=== PATIENT | male | born 1935 | race Caucasian/White ===

== ENCOUNTER → 2016-06-08 | Outpatient (CLI) | payer MEDICARE ==
[2016-06-08 18:45] LABS: Blood Urea Nitrogen 25 mg/dL (9-20); Non-African American GFR(MDRD) >60 (>60 ml/min/1.73 sqM)
--- NOTE | 2016-06-09 07:49 | CT ---
EXAMINATION TYPE: CT abdomen pelvis w con DATE OF EXAM: 06/08/2016 8:08 PM COMPARISON: 10/01/2015 HISTORY: Polyps found on colonoscopy per patient. Per order evaluate cecum mass and kidney mass. CT DLP: 1412.90 mGycm CONTRAST: CT scan of the abdomen and pelvis is performed with Oral Contrast and with IV Contrast, patient injec tatiana with 100 mL of Omnipaque 300. FINDINGS: LUNG BASES-: No visible nodule. No infiltrate. Basilar calcified granulomas noted. LIVER/GB: No calcified gallstones. No space occupying hepatic lesion. Biliary tree is of normal ca liber. PANCREAS: No inflammation. No distinct mass. SPLEEN: No splenic enlargement. No lesion seen. ADRENALS: No nodule. No thickening. KIDNEYS/BLADDER: No hydronephrosis. No nephrolithiasis. Solid renal lesion lower pole left kidney measures approximately 4.8 x 2.9 cm. No additional solid lesions evident. Large cyst left kidney midp ole region measures 5.6 cm in greatest dimension. Urinary bladder grossly unremarkable. BOWEL: Normal appendix. Normal bowel caliber. No inflammation. Large amount of intracolonic debris within the cecal region limits evaluation. Underlying mass is difficult to exclude. Correlate with co lonoscopy. GENITAL ORGANS: No gross abnormality. LYMPH NODES: No greater than 1cm abdominal or pelvic lymph nodes are appreciated. AORTA: No significant abnormality. OSSEOUS STRUCTURES: Severe degenerative change lumbar spine. OTHER: No significant additional abnormality is seen. IMPRESSION: 1. Large amount of intracolonic debris within the cecal region limits evaluation. Underlying mass is difficult to exclude. Correlate with colonoscopy. 2. Solid mass lower pole left kidney. Renal cell carcinoma is not excluded. consult advised.
== END | disposition home or self-care (01) ==
LOC: RADCTMAIN 18:03
PROVIDERS: ATTEND Internal Medicine Pulmonary Disease
DX: N28.89 Other specified disorders of kidney and ureter (principal); I10 Essential (primary) hypertension
CPT/HCPCS: 82565; 84520; 74177; 36415; Q9967

== ENCOUNTER → 2016-07-26 | Outpatient (CLI) | payer MEDICARE ==
--- NOTE | 2016-07-26 13:03 | FL ---
EXAMINATION TYPE: FL barium enema w air contrast DATE OF EXAM: 07/26/2016 12:19 PM COMPARISON: Abnormal CT with inconclusive colonoscopy. HISTORY: CT abdomen and pelvis June 08, 2016. TECHNIQUE: A double contrast barium enema study is performed. A total of 4 minutes 36 seconds of flu oroscopic time was utilized during procedure. FINDINGS: Studio Grip view of the abdomen shows overall non-obstructive bowel gas pattern. There is successful filling to the cecum. Patient has redundant colon making evaluation suboptimal as contrast bag is filled 3 times for procedure. The redundant colon makes double contrast evaluation o f the right colon Essentially impossible making evaluation at the area of CT concern suboptimal. In a ddition reflux of contrast into terminal ileum makes evaluation at this level suboptimal. No evidence of any intraluminal mass, obstructing or constricting lesion throughout the colon. Just a few scattered diverticula are present. Appendix was filled and appeared normal. The terminal ileum was refluxed and appears within normal limits. There is no obvious lesion identified at area of concern the cecum at level of terminal ileum . Double contrast evaluation cannot be performed. No suspicious narrowing is present. IMPRESSION: Corresponding to area of CT concern, no obvious lesion is present but nonobstructing muc osal lesion cannot be excluded due to above limitations. Options include repeat colonoscopy or CT col onography in these difficult cases. Remainder of study unremarkable for neoplasm.
== END | disposition home or self-care (01) ==
LOC: RADFLMAIN 10:15
PROVIDERS: ATTEND Internal Medicine Pulmonary Disease
DX: C18.9 Malignant neoplasm of colon, unspecified (principal)
CPT/HCPCS: 74280

== ENCOUNTER 2016-08-02 08:42 | Day surgery (SDC) | payer MEDICARE ==
[2016-08-02] MEDS ORDERED: HYDROmorphone 1 MG/ML 1 ML SYRINGE IVP PRN (09:01)
[2016-08-02 09:08] VITALS: TEMP 98.2
[2016-08-02 09:18] LABS: INR 1.1 (<1.1); Prothrombin Time 11.4 sec (9.0-12.0)
[2016-08-02 09:20] LABS: Non-African American GFR(MDRD) >60 (>60 ml/min/1.73 sqM)
--- NOTE | 2016-08-02 14:00 | CT ---
EXAMINATION TYPE: CT guided FNA DATE OF EXAM: 08/02/2016 10:59 AM COMPARISON: NONE HISTORY: left renal mass CT DLP: 1864mGycm PROCEDURE: The risks, applications, benefits and alternatives, were discussed with the patient and questions wer e answered. Informed consent was obtained. The patient was placed prone on the fluoroscopic table, p repped and draped in the usual sterile fashion. A 22-gauge system was utilized with direct passage of the needle into the left renal lesion under CT guidance. Samples were obtained with fine needle aspiration. Pathology confirmed adequate sample. The patient was stable throughout procedure and remained stable upon discharge from radiology. All e lements of maximal barrier and sterile technique were utilized. IMPRESSION: 1. Successful left renal mass fine needle aspiration under CT guidance.
[2016-08-02 14:27] VITALS: BP 115/73; PULSE 57; RESP 16
== END 2016-08-02 14:28 | disposition home or self-care (01) ==
LOC: RADPROMAIN 08:42
PROVIDERS: ATTEND Urology
DX: C64.2 Malignant neoplasm of left kidney, except renal pelvis (principal); I10 Essential (primary) hypertension; E66.9 Obesity, unspecified; Z68.30 Body mass index [BMI] 30.0-30.9, adult; Z79.82 Long term (current) use of aspirin; Z79.899 Other long term (current) drug therapy; Z88.0 Allergy status to penicillin; Z88.8 Allergy status to other drugs, medicaments and biological substances
CPT/HCPCS: 10022; 36415; 77012; 82565; 85049; 85610; 88173; 88305; 88341; 88342

== ENCOUNTER → 2017-02-05 | Outpatient (CLI) | payer MEDICARE ==
[2017-02-05 19:10] LABS: Blood Urea Nitrogen 20 mg/dL (9-20); Non-African American GFR(MDRD) >60 (>60 ml/min/1.73 sqM)
--- NOTE | 2017-02-05 21:02 | CT ---
EXAMINATION TYPE: CT abdomen w con DATE OF EXAM: 02/05/2017 COMPARISON: CT abdomen and pelvis June 08, 2016 HISTORY: Follow-up staging for renal cancer. CT DLP: 1432.10 mGycm, Automated Exposure Control for Dose Reduction was Utilized. CONTRAST: CT scan of the abdomen is performed with oral and with IV Contrast, patient injected with 100 mL of O mnipaque 300. FINDINGS: LUNG BASES: Cardiomegaly is redemonstrated. Calcified pleural plaques in bilateral lung bases are red emonstrated suggesting prior asbestosis exposure. LIVER/GB: No significant abnormality is appreciated. PANCREAS: No significant abnormality is seen. SPLEEN: No significant abnormality is seen. ADRENALS: Slight thickening to both adrenal glands is redemonstrated, suspected benign hyperplasia KIDNEYS: There is symmetric cortical medullary uptake and excretion of both from both kidneys without evidence of hydronephrosis bilaterally. There is interval partial nephrectomy posterior portion lowe r pole left kidney with some curvilinear fluid at surgical site seen on image 40 series 3. There are subcentimeter low dense lesion anteriorly mid to lower pole level on image 36 series 5 to small to fu rther characterize per presumed benign not as well seen on prior exam. There has likely been fenestra tion of large simple appearing cyst superior to the renal lesion. No suspicious solid or cystic mass is evident currently in either kidney on current study after treatment. BOWEL: Persistent slightly suspicious thickening in the right colon just above the terminal ileum, ca nnot exclude nonobstructing mucosal lesion. Correlate with repeat colonoscopy or CT colonography if t his has not been performed as suggested on BE study in July. LYMPH NODES: No greater than 1cm abdominal abdominal lymph nodes are appreciated. OSSEOUS STRUCTURES: There is prominent multilevel spurring and disc space narrowing in the thoracolum bar spine with multilevel vacuum disc phenomenon present. OTHER: Persistent large inguinal hernia containing fat and small mesenteric vessels is noted. IMPRESSION: Successful surgical treatment of lower pole left renal lesion or neoplasm. No suspicious persistent mass or adenopathy is identified currently. Attention to right colon just above cecum.
== END | disposition home or self-care (01) ==
LOC: RADCTMAIN 18:33
PROVIDERS: ATTEND Urology
DX: C64.2 Malignant neoplasm of left kidney, except renal pelvis (principal); Z88.0 Allergy status to penicillin; Z90.5 Acquired absence of kidney; Z79.899 Other long term (current) drug therapy
CPT/HCPCS: 82565; 84520; 74160; 36415; Q9967

== ENCOUNTER → 2017-10-22 | Outpatient (CLI) | payer MEDICARE ==
--- NOTE | 2017-10-23 08:36 | CT ---
EXAMINATION TYPE: CT abdomen w con DATE OF EXAM: 10/22/2017 COMPARISON: 02/05/2017, 06/08/2016 and 10/01/2015 HISTORY: Kidney cancer follow-up. CT DLP: 1352 mGycm Automated exposure control for dose reduction was used. TECHNIQUE: Helical acquisition of images was performed from the lung bases through the top of iliac crest to include entire abdomen. CONTRAST: Performed with Oral Contrast and with IV Contrast, patient injected with 100 mL of Isovue M300. FINDINGS: LUNG BASES: There are calcified pleural plaques along the right and left lung bases. Bibasilar subseg mental atelectasis is present. The heart is enlarged. LIVER/GB: No significant abnormality is appreciated. No cholelithiasis. PANCREAS: Pancreas enhances homogeneously. No ductal dilatation is seen. SPLEEN: No significant abnormality is seen. ADRENALS: There is mild symmetric thickening of the bilateral adrenal glands although they maintain t heir normal adreniform shape, similar to prior exams. Therefore this is presumed to represent adrenal gland hyperplasia. KIDNEYS: Again there is a partial nephrectomy of the posterior lower pole of the left kidney. The deg ree of curvilinear postprocedural fluid has decreased in the interim now measuring 9 mm in greatest t hickness and previously measuring 1.6 cm. This is measured on series 3 image 43. No solid component i s seen to indicate recurrence at this time. Similar-appearing anterior cortical fluid attenuated joyce l lesion measures 1.2 cm on series 3 image 39. No new renal lesion is seen of either kidney. No hydro nephrosis. Few small right renal sinus cysts are incidentally noted. These are best seen on delayed i mages. There is no new retroperitoneal soft tissue mass. No soft tissue density within the left renal vein. No surrounding adenopathy. BOWEL: Nondilated and grossly unremarkable. The previously seen persistent suspicious thickening of the right hemicolon just above the terminal ileum is not as well demonstrated on today's examination. Colonoscopy was recommended on the prior exam. LYMPH NODES: No greater than 1 cm lymph node is seen within the abdomen. OSSEOUS STRUCTURES: Moderate degenerative changes of the spine are noted. No new suspicious osseous lesion. FREE AIR: No free air is visualized. OTHER: There is a small ventral fat filled hernia present with a wide neck. IMPRESSION: 1. POSTSURGICAL CHANGE OF THE LOWER POLE OF THE LEFT KIDNEY WITH DECREASING PARARENAL FLUID. NO NEW R ENAL LESION, SURROUNDING ADENOPATHY, RETROPERITONEAL SOLID NODULE, OR SUSPICIOUS OSSEOUS LESION. 2. THE PREVIOUSLY SEEN THICKENING OF THE ASCENDING COLON IS NOT WELL APPRECIATED ON TODAY'S EXAMINATI ON ALTHOUGH PRESENT ON THE PRIOR. COLONOSCOPY WAS RECOMMENDED ON THE PRIOR AND WOULD BE RECOMMENDED I F NOT PERFORMED IN THE INTERIM.
== END | disposition home or self-care (01) ==
LOC: RADCTMAIN 19:31
PROVIDERS: ATTEND Urology
DX: C64.2 Malignant neoplasm of left kidney, except renal pelvis (principal); Z98.890 Other specified postprocedural states
CPT/HCPCS: 82565; 84520; 74160; 36415; Q9967